=== PATIENT | female | born 1965 | race Caucasian/White ===

== ENCOUNTER 2017-10-08 08:40 | Observation (INO) | payer OTHER ==
[~2017-10-08] VITALS: Ht 157.5 cm; Wt 60.8 kg
[~2017-10-08 08:40] MED LIST: AMBIEN10 MG; CONZIP100 MG; ENBREL50 MG/1 ML IM/IV/SC; GABAPENTIN PO; LOVASTATIN10 MG PO; LOVASTATIN20 MG PO; MEDROXYPROGEST2.5 MG PO; NAPROXEN250 MG PO; PREDNISONE10 MG PO; REQUIP0.25 MG; RESTORIL15 MG PO; ROPINIROLE HCL1 MG PO; TRAZODONE HCL50 MG; TRAZODONE HCL50 MG PO; ULTRAM50 MG PO
[2017-10-08 09:17] LABS: BASOPHILS % 0.5 % (0.0-1.0); EOSINOPHILS # (AUTO) 0.1 (0.0-0.4); EOSINOPHILS % 3.4 % (0.0-6.0); HEMATOCRIT 42.3 % (34.2-44.1); HEMOGLOBIN 14.5 g/dL (12.0-16.0); LYMPHOCYTES # (AUTO) 1.1 (1.0-3.2); LYMPHOCYTES % 25.7 % (18.0-39.1); MEAN CORPUSCULAR HEMOGLOBIN 32.5 pg (28-32); MEAN CORPUSCULAR HGB CONC 34.3 g/dL (31-35); MEAN CORPUSCULAR VOLUME 94.8 fL (81-99); MONOCYTES # (AUTO) 0.4 (0.2-0.8); MONOCYTES % 8.9 % (4.4-11.3); NEUTROPHILS # (AUTO) 2.6 (2.1-6.9); NEUTROPHILS % 61.3 % (38.7-80.0); PLATELET COUNT 233 x10e3/uL (140-360); RED BLOOD COUNT 4.46 x10e6/uL (3.6-5.1); RED CELL DISTRIBUTION WIDTH 11.9 % (11.7-14.4)
[2017-10-08 09:20] LABS: INR 1.17; PARTIAL THROMBOPLASTIN TIME 29.5 seconds (23.8-35.5)
[2017-10-08 09:33] LABS: ALANINE AMINOTRANSFERASE 19 IU/L (0-55); ALBUMIN 4.2 g/dL (3.5-5.0); ALBUMIN/GLOBULIN RATIO 1.4 (0.8-2.0); ALKALINE PHOSPHATASE 71 IU/L (40-150); ANION GAP 13.9 mmol/L (8-16); BLOOD UREA NITROGEN 19 mg/dL (7-26); BUN/CREATININE RATIO 21 (6-25); CALCIUM 9.6 mg/dL (8.4-10.2); CARBON DIOXIDE 27 mmol/L (22-29); CHLORIDE 107 mmol/L (98-107); CREATINE KINASE 56 IU/L (29-168); CREATININE, SERUM 0.89 mg/dL (0.57-1.11); EST GLOMERULAR FILTRATION RATE > 60 ML/MIN (60-); GLUCOSE 89 mg/dL (74-118); POTASSIUM 3.9 mmol/L (3.5-5.1); SODIUM 144 mmol/L (136-145)
--- NOTE | 2017-10-08 09:39 | Diagnostic Imaging Report ---
Exam: Head CT without contrast History: Sudden severe dizziness, slurred speech. Comparison studies: None Technique: Axial images were obtained from the skull base to the vertex. Coronal and sagittal images reconstructed from the axial data. Intravenous contrast: None Findings: Scalp: No abnormalities. Bones: No fractures, blastic or lytic lesions. Brain sulci: Appropriate for age. Ventricles: Normal in size and configuration. No hydrocephalus. Extra-axial spaces: No masses, no fluid collection. Parenchyma: No abnormal densities. No masses, acute hemorrhage, acute or chronic vascular insults. Sellar/suprasellar region: No abnormalities. Craniocervical junction: Patent foramen magnum. No Chiari one malformation. Incidental findings: Atherosclerotic calcifications in the carotid siphons and left intradural vertebral artery. Mild nonspecific bilateral partial inflammatory ethmoid opacification with small left sphenoid sinus retention cyst. IMPRESSION: No acute intracranial abnormalities. Signed by: Dr. Callum Zafar M.D. on 10/08/2017 9:35 AM
--- NOTE | 2017-10-08 10:02 | Diagnostic Imaging Report ---
PROCEDURE: CHEST SINGLE (PORTABLE) COMPARISON: None. INDICATIONS: SLURRED SPEECH FINDINGS: LUNGS: No consolidations or edema. PLEURA: No effusions or pneumothorax. HEART \T\ MEDIASTINUM: The heart is within normal size-limits. BONES \T\ SOFT TISSUES: No acute findings. CONCLUSION: No acute thoracic abnormality. Alcides Powell D.O. Dictated by: Alcides Powell D.O. on 10/08/2017 at 10:04 Electronically approved by: Alcides Powell D.O. on 10/08/2017 at 10:04
[2017-10-08 10:12] LABS: AMPHETAMINES SCREEN,URINE NEGATIVE (NEGATIVE); BENZODIAZEPINES SCREEN,URINE NEGATIVE (NEGATIVE); PHENCYCLIDINE SCREEN,URINE NEGATIVE (NEGATIVE)
[2017-10-08 10:13] LABS: CLARITY,URINE SL CLOUDY (CLEAR); COLOR,URINE YELLOW (YELLOW); KETONES,URINE NEGATIVE (NEGATIVE); LEUKOCYTE ESTERASE ,URINE NEGATIVE (NEGATIVE); NITRITE,URINE NEGATIVE (NEGATIVE); PROTEIN,URINE DIPSTICK NEGATIVE (NEGATIVE)
[2017-10-08 10:14] LABS: BILIRUBIN,URINE NEGATIVE (NEGATIVE); URINE UROBILINOGEN 0.2 mg/dL (0.2 - 1)
[2017-10-08 10:19] LABS: BACTERIA,URINE RARE /HPF; EPITHELIAL CELLS,URINE FEW /LPF
[2017-10-08 10:20] LABS: YEAST,URINE RARE
[2017-10-08] MEDS ORDERED: ASPIRIN 325 MG TAB PO ONE (11:00)
--- OUTSIDE RECORDS SUMMARY | 2017-10-08 11:01 | XMS REPORT ---
Author Author [facility] Address Unknown Phone Unavailable Care Team Providers Care Cylinder Inspector And Tester Name Role Phone PRINCESS LLANOS Unavailable Unavailable Problems This patient has no known problems. Allergies, Adverse Reactions, Alerts This patient has no known allergies or adverse reactions. Medications This patient has no known medications. Results Test Description Test Time Test Comments Text Results Atomic Results Result Comments CT BRAIN WO [place] [address] Patient Name: JORDON CLARK R MR #: [id number] : 1965 Age/Sex: 52/F Req # : [id number] Adm Physician: Ordered by: PRINCESS LLANOS MD Report #: [id number] Location: ER Room/Bed: Procedure: [id number] CT/CT BRAIN WO Exam Date: 10/08/17 Exam Time: 0850 REPORT STATUS: Signed Exam: Head CT without contrast History: Sudden severe dizziness, slurred speech. Comparison studies: None Technique: Axial images were obtained from the skull base to the vertex. Coronal and sagittal images reconstructed from the axial data. Intravenous contrast: None Findings: Scalp: No abnormalities. Bones: No fractures, blastic or lytic lesions. Brain sulci: Appropriate for age. Ventricles: Normal in size and configuration. No hydrocephalus. Extra-axial spaces: No masses, no fluid collection. Parenchyma: No abnormal densities. No masses, acute hemorrhage, acute or chronic vascular insults. Sellar/suprasellar region: No abnormalities. Craniocervical junction: Patent foramen magnum. No Chiari one malformation. Incidental findings: Atherosclerotic calcifications in the carotid siphons and left intradural vertebral artery. Mild nonspecific bilateral partial inflammatory ethmoid opacification with small left sphenoid sinus retention cyst. IMPRESSION: No acute intracranial abnormalities. Signed by: Dr. Emeli Zafar M.D. on 10/08/2017 9:35 AM Dictated By: EMELI ZAFAR MD 4 Transcribed By: MARC on 10/08/17934 COPY TO: PRINCESS LLANOS MD CHEST SINGLE (PORTABLE) [place] [address] Patient Name: JORDON CLARK MR #: [id number] : 1965 Age/Sex: 52/F Req #: [id number] Adm Physician: Ordered by: PRINCESS LLANOS MD Report #: [id number] Location: ER Room/Bed: Procedure: [id number] DX/CHEST SINGLE (PORTABLE) Exam Date: 10/08/17 Exam Time: 0900 REPORT STATUS: Signed PROCEDURE: CHEST SINGLE (PORTABLE) COMPARISON: None. INDICATIONS: SLURRED SPEECH FINDINGS: LUNGS: No consolidations or edema. PLEURA: No effusions or pneumothorax. HEART T MEDIASTINUM: The heart is within normal size-limits. BONES T SOFT TISSUES: No acute findings. CONCLUSION: No acute thoracic abnormality. Fariba Powell D.O. Dictated by: Fariba Powell D.O. on 10/08/2017 at 10:04 Electronically approved by: Fariba Powell D.O. on 10/08/2017 at 10:04 Dictated By: FARIBA POWELL DO 1004 Transcribed By: FELY on 10/08/17 1004 COPY TO: PRINCESS LLANOS MD
[2017-10-08 11:56] VITALS: BP 105/65
[2017-10-08 12:30] VITALS: BP 105/65
[2017-10-08] MEDS ORDERED: MELOXICAM7.5 MG PO (13:15)
[2017-10-08] MEDS ORDERED: ZOLPIDEM TART12.5 MG PO (13:20)
[2017-10-08] MEDS ORDERED: BUTALB-ACETAMI1 EACH PO (13:29)
[2017-10-08 13:42] VITALS: BP 105/65
[2017-10-08 14:55] LABS: CHOL/HDL RATIO 2.7 (3.0-3.6)
--- NOTE | 2017-10-08 15:58 | Consultation ---
DATE OF CONSULTATION: October 08, 2017 NEUROLOGY CONSULT HISTORY OF PRESENT ILLNESS: Ms. Stewart is a 52-year-old right-hand dominant woman with past medical history significant for hyperlipidemia and tobacco use, who presented to the emergency center at [facility] on October 08, 2017, with symptoms concerning for a transient ischemic attack/stroke. At approximately 7:45 AM on the day of admission, the patient was driving to work when she experienced the sudden onset of dizziness, which she further describes as lightheadedness. Simultaneously, Ms. Stewart experienced the onset of visual disturbance, which she describes as an impairment of depth perception, as well as confusion, which she further describes as a cloudy sensation. When she arrived at work, a coworker noticed the patient's speech was mildly dysarthric and slowed. The coworker took the patient's vital signs; her blood pressure was within normal limits, but her heart rate was elevated in the 160s. Ms. Stewart's coworker brought her to the emergency center at [facility] for further evaluation. Upon arrival in the emergency center, the patient was afebrile with a blood pressure 117/80 mmHg with a pulse of 93 beats per minute. The patient's neurological examination was reportedly significant for slowed speech. A CT of the brain without contrast was ordered, and did not show evidence of recent large territorial ischemia or hemorrhage. While in the emergency center, the patient's symptoms spontaneously resolved. Ms. Stewart reports her symptoms lasted for approximately 1-1/2 hours. In addition to the symptoms described above, Ms. Stewart noticed impairment of gait and balance while walking into work, and again when walking into the emergency center. She does not report facial droop, hemiparesis, or hemihypesthesia associated with the above symptoms. The patient has not experienced similar symptoms previously. She was not experiencing a headache at the time the above symptoms were present. However, the patient does have a history of migraines. REVIEW OF SYSTEMS: Confusion, visual disturbance, dysarthria, as well as slow speech, impairment of balance and gait. Otherwise, the 12-point review of systems is negative. PAST MEDICAL HISTORY: Hyperlipidemia, rheumatoid arthritis, osteopenia, history of migraines with the last migraine occurring approximately 2 weeks ago, insomnia, diverticulitis. PAST SURGICAL HISTORY: Left foot surgery, cystectomy on the left side of the neck, tonsillectomy. PAST HOSPITALIZATIONS: Surgeries and procedures as listed, diverticulitis, childbirth once. FAMILY HISTORY: The patient's paternal and maternal grandparents are . The patient's maternal grandmother from breast cancer. The other medical histories are unknown. The patient's father is from lung cancer. The patient's mother is alive. She had breast cancer that is currently in remission. The patient's mother has congestive heart failure as well. The patient has 2 older sisters who are alive and healthy. Ms. Stewart has 1 son who is alive. He has posttraumatic stress disorder. SOCIAL HISTORY: The patient is . 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 The patient does report tobacco use. She has smoked approximately one-quarter pack per day for the past 30 years. Ms. Stewart reports drinking either a beer or dianne once per month. She does not endorse current or prior recreational drug use. HOME MEDICATIONS 1. Fioricet 1 tablet by mouth as needed for headache. 2. Enbrel 50 mg per 1 mL inject 1 mL subcutaneously weekly. 3. Lovastatin 20 mg by mouth at bedtime daily. 4. Medroxyprogesterone acetate 2.5 mg by mouth daily. 5. Meloxicam 15 mg by mouth daily. 6. Naproxen 500 mg by mouth twice daily. 7. Prednisone 10 mg by mouth daily as needed. 8. Temazepam 30 mg by mouth at bedtime daily. 9. Tramadol 100 mg by mouth 3 times daily as needed for pain. 10. Trazodone 200 mg by mouth at bedtime daily. 11. Ambien ER 12.5 mg by mouth at bedtime daily. 12. Gabapentin 300 mg by mouth at bedtime daily. ALLERGIES: NO KNOWN DRUG ALLERGIES. NO KNOWN FOOD ALLERGIES. NO KNOWN ALLERGIES TO LATEX. NO KNOWN ALLERGIES TO IODINE OR OTHER CONTRAST MATERIALS. PHYSICAL EXAMINATION VITAL SIGNS: Height 62 inches, weight 130 pounds, BMI 23.8 kg/meter squared, blood pressure 105/65 mmHg, pulse 66 beats per minute, respiratory rate 18 breaths per minute, oxygen saturation 97% on room air. GENERAL: The patient is awake and alert. Does not appear distressed. . HEENT: Normocephalic and atraumatic. Pupils are equal, round and reactive to light. Moist mucous membranes. NECK: Supple. No appreciable thyromegaly. No appreciable carotid bruits. CARDIOVASCULAR: S1 and S2. Regular rate and rhythm. No murmurs, rubs, or gallops. RESPIRATORY: Clear to auscultation bilaterally. No wheezes, rhonchi or rales. EXTREMITIES: The skin is warm and dry. No clubbing, cyanosis or edema. The posterior tibial and dorsalis pedis pulses are 2+ and symmetric. SKIN: No rashes or lesions. NEUROLOGIC: Memory/attention: The patient is awake, alert, oriented to person, place, time, and situation. CRANIAL NERVES: Cranial nerve I: Not tested. Cranial nerve II, III, IV, : Pupils are equal and round. React briskly to light (from 4 mm to 2 mm). Extraocular movements intact. No nystagmus. Cranial nerve V: Sensation to light touch and pinprick is intact in the bilateral V1 through V3 distributions. Strength of the temporalis and masseter muscles is within normal limits. Cranial nerve VIII: The face is symmetric as are all facial movements. Strength is within normal limits. Hearing is intact to finger rub bilaterally. Cranial nerve IX, X: The soft palate elevates equally and symmetrically. Cranial nerve XI: Normal strength of the bilateral sternocleidomastoid and trapezius muscles. Cranial nerve XII: The tongue protrudes midline and moves symmetrically from side to side. STRENGTH: Bulk is normal and strength is 5/5 in the bilateral deltoids, biceps, triceps, wrist flexors and extensors, finger flexors and extensors, intrinsic hand muscles, hip flexors, knee flexors and extensors, ankle dorsiflexion and plantar flexion, and intrinsic foot muscles. Tone is normal. DTRs: Deep tendon reflexes are 2+ and symmetric at the triceps, biceps, brachioradialis, patellas, and Achilles. Plantar responses are flexor bilaterally. Absent clonus. SENSATION: Sensation is intact to light touch and pinprick in both arms and both legs. CEREBELLAR: Ehfyei-ojgk-hvdjtd and heel-lamb movements are intact without dysmetria or other impairment. GAIT: Deferred. SPEECH: Spontaneous speech is normal without appreciable dysarthria or aphasia. Repetition is intact. INVOLUNTARY MOVEMENTS: None. PRONATOR DRIFT: None. LABORATORY DATA: Sodium 144, potassium 3.9, chloride 107, carbon dioxide 27, anion gap 13.9, BUN 19, creatinine 0.89. Estimated GFR greater than 60. BUN to creatinine ratio 21. Glucose 89. Calcium 9.6. Total bilirubin 0.8, AST 15, ALT 19, and alkaline phosphatase 71. Total protein 7.1, albumin 4, globulins 2.9. Albumin to globulin ratio 1.4. CK 56, CK-MB 0.7 and troponin I less than 0.001. The CBC with differential and platelets reveals a white blood cell count of 4.16 with a normal differential. The hemoglobin and hematocrit are 14.5 and 42.3, respectively. The platelet count is 233,000. PT 14, INR 1.17 and PTT 29.5. Urinalysis is significant for a specific gravity of 1.03, 3+ blood, 11-20 red blood cells. Urine toxicology is negative. DIAGNOSTIC STUDIES: Electrocardiogram on October 08, 2017, normal sinus rhythm at 75 beats per minute. Chest x-ray on October 08, 2017, no acute thoracic abnormality. CT of the brain without contrast on October 08, 2017, on my review, there is no evidence of recent large territorial ischemia, hemorrhage, mass, or mass effect. ASSESSMENT AND PLAN: Ms. Stewart is a 52-year-old right-hand dominant woman with past medical history significant for hyperlipidemia and tobacco use, admitted to [facility] under observation status for further evaluation of a probable transient ischemic attack. The patient's neurological examination is nonfocal at present. Her laboratory data and other diagnostic studies have been reviewed and are documented above. RECOMMENDATIONS 1. Lipid panel and hemoglobin A1c. 2. MRI brain without contrast. 3. Echocardiogram. 4. Bilateral carotid artery ultrasound with Doppler. 5. Aspirin 325 mg by mouth daily for stroke prophylaxis. 6. Allow permissive hypertension pending the results of vessel imaging. 7. Follow up lipid panel. Ms. Stewart may continue treatment with lovastatin 20 mg by mouth at bedtime daily in the interim. 8. Followup hemoglobin A1c. Tight glycemic control is recommended. 9. Smoking cessation counseling was provided to the patient. 10. GI prophylaxis with Pepcid 20 mg by mouth twice daily before meals. DVT prophylaxis with Lovenox 40 mg subcutaneously daily. 11. Defer treatment of the remaining medical comorbidities to the primary and other services. Thank you for this consultation I will continue to follow the patient while she remains in the hospital. Time spent 50 minutes. Job#: [id number] MAIK OLIVARES
[2017-10-08 17:07] VITALS: BP 101/67
--- NOTE | 2017-10-08 18:37 | Diagnostic Imaging Report ---
History: Dizziness Comparison studies: Head CT on 10/08/2017 Technique: Sagittal T2; axial DWI, FLAIR, MPGR, T1, Coronal FLAIR. Intravenous contrast: None Findings: Scalp: Normal in signal . No masses . Bone marrow: Normal in signal intensity. Extra-axial: No masses or fluid collections. Brain sulci: Appropriate for age. Ventricles: Normal in size . No hydrocephalus . Parenchyma: A few punctate T2 FLAIR hyperintense foci in the frontal white matter are nonspecific small vessel ischemic changes. No masses, hemorrhage, acute or chronic cortical ischemic insults. Suprasellar region: No abnormalities. Craniocervical junction: No abnormalities. Patent foramen magnum. No Chiari one malformation. Vessels: Normal flow-voids in the arteries and sinuses. IMPRESSION: 1. Mild frontal white matter, with ischemic changes. 2. Otherwise, no abnormalities. Signed by: Dr. Juan R Orozco M.D. on 10/08/2017 6:33 PM
[2017-10-08] MEDS: FAMOTIDINE 20 MG TAB PO SCH (19:21)
--- NOTE | 2017-10-08 19:23 | History and Physical ---
The patient comes in with symptoms of TIA. HISTORY OF PRESENT ILLNESS: Ms. Stewart is a 52-year-old lady who was in her usual state of health until she was driving and experienced the sudden onset of dizziness described as lightheadedness, and the patient also had visual disturbances and also confusion, and she continued with the symptoms after she reached work, and the patient showed some aphasic symptoms, and was urged by the coworkers to go to the emergency room. She came here and was admitted for TIA-like symptoms. PAST MEDICAL HISTORY: History of chronic headaches, history of rheumatoid arthritis, history of hyperlipidemia, history of osteoarthritis, history of insomnia and history of chronic pain and neuropathic symptoms. Also history of migraines. PAST SURGICAL HISTORY: History of neck surgery, history of tonsillectomy and foot surgery. 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 Positive for tobacco. No ETOH abuse and no drug abuse either. MEDICATIONS: Enbrel 50 mg q. weekly, lovastatin 20 mg, medroxyprogesterone 2.5 mg daily, Meloxicam 50 mg daily, Naprosyn 500 mg daily, 10 mg, temazepam 30, tramadol 100, trazodone 200, Ambien ER 12.5 and gabapentin 300 mg. ALLERGIES: NO KNOWN DRUG ALLERGIES. REVIEW OF SYSTEMS: Negative for chest pain. No shortness of breath. No nausea, vomiting or diarrhea. No constipation. No rectal bleeding. All the above symptoms and chief complaints. No diplopia. Positive for blurry vision. Positive for aphasia. PHYSICAL EXAMINATION VITAL SIGNS: Stable. Weight of 130. BMI of 23. Blood pressure 105/65. Saturation 97%. GENERAL: The patient is alert and oriented x3. HEENT: Normocephalic, atraumatic. Pupils react to light and accommodation. RESPIRATORY: Clear to auscultation bilaterally. EXTREMITIES: No cyanosis, clubbing or edema. NEUROLOGIC: Nonfocal. LABORATORY DATA: Creatinine 0.89, GFR of 60, ALT and AST normal, CK 56. CBC was normal. PT and INR are normal. Urinalysis shows specific gravity of 1.03. There is 3+ blood and urine toxicology is negative too. DIAGNOSTIC STUDIES: Sinus rhythm on electrocardiogram. CT of the brain with contrast no evidence of territorial ischemia, hemorrhage, mass or mass affect. ASSESSMENT: A 52-year-old lady with a history of chronic migraine comes in with TIA-like symptoms. PLAN: Plan is to do a lipid panel, MRI of the brain without contrast. Echocardiogram. Ultrasound carotid Doppler. The patient has been started on aspirin. Consult with neurology has been done. Further recommendations depending on clinical course. Will continue to monitor the patient. MRI will be followed. Will follow up with Dr. Jones. Job#: [id number]
[2017-10-08 20:00] VITALS: BP 103/67
[2017-10-08] MEDS ORDERED: PREDNISONE 10 MG TAB PO PRN (22:30)
[2017-10-08] MEDS ORDERED: TRAMADOL HCL 50 MG TAB PO PRN (22:30)
[2017-10-08] MEDS ORDERED: TRAZODONE HCL 50 MG TAB PO SCH (22:36)
[2017-10-08] MEDS ORDERED: GABAPENTIN 300 MG CAP PO SCH (22:38)
[2017-10-08] MEDS ORDERED: ZOLPIDEM TARTRATE 10 MG TAB PO SCH (22:38)
[2017-10-09] VITALS: BP 99/69
[2017-10-09 04:00] VITALS: BP 108/75
[2017-10-09 07:32] VITALS: BP 92/60
[2017-10-09] MEDS: FAMOTIDINE 20 MG TAB PO SCH (08:43)
[2017-10-09 08:45] VITALS: BP 92/60
[2017-10-09] MEDS ORDERED: ASPIRIN 325 MG TAB EC PO SCH (09:00)
[2017-10-09] MEDS ORDERED: MELOXICAM 7.5 MG TAB PO SCH (09:00)
[2017-10-09] MEDS ORDERED: ENOXAPARIN SOD INJ 40 MG/0.4 ML SYR SC SCH (09:00)
[2017-10-09] MEDS ORDERED: ASPIRIN ENTERI325 MG PO (10:46)
[2017-10-09] MEDS ORDERED: ZOLPIDEM TARTRATE 12.5 MG PO SCH (21:00)
[2017-10-09] MEDS ORDERED: GABAPENTIN 300 MG PO SCH (21:00)
== END 2017-10-09 11:35 | disposition home or self-care (01) ==
LOC: ER 08:40 → IMCU 10:58
PROVIDERS: ADMIT Family Medicine; ATTEND Family Medicine
CPT/HCPCS: 36415; 70450; 70551; 71045; 80053; 80061; 80307; 81001; 82550; 82553; 83036; 84484; 85025; 85610; 85730; 93005; 93306; 93880; 97139; 99284; G0378; J1650